=== PATIENT | male | born 1950 | race Caucasian/White ===

== ENCOUNTER → 2018-05-14 | Outpatient (CLI) | payer MEDICARE, OTHER ==
--- NOTE | 2018-05-14 12:57 | EST ---
EXERCISE STRESS DATE OF SERVICE: 05/14/2018 AGE: 68 SEX: Male HT: 71" WT: 247 pounds PROTOCOL: Rodrigo STAGE: II DURATION OF EXERCISE: 4 minutes HEART RATE REST: 70 BLOOD PRESSURE REST: 153/97 MAXIMUM HEART RATE ACHIEVED: 145 MAXIMUM BLOOD PRESSURE: 214/100 85% MPHR: 131 100% MPHR: 146 METS: 5.8 INDICATIONS: Coronary artery disease. CLINICAL INFORMATION: Baseline EKG revealed normal sinus rhythm without significant ST-T changes. Patient walked on a standard Rodrigo protocol for 4 minutes, developed some fatigue, shortness of breath, complained of soreness in the legs and therefore stress test was stopped. He achieved a maximal heart rate of 145 beats per minute, which is more than 85% of predicted maximal. There was some artifact noted. There were rare isolated PVCs. At peak exercise, the patient did not have any significant angina and EKG did not reveal any ST-segment changes. However, in the recovery period there is evidence of inferolateral ST-segment depression suggestive of ischemia without subjective symptoms of angina. There was no significant arrhythmia. FINAL IMPRESSION: 1. Limited exercise capacity. 2. Abnormal stress test with inferolateral ST-segment depression suggestive of ischemia without subjective symptoms of angina. If myocardial ischemia is strongly suspected, he should have a stress Cardiolite scan or a stress echocardiogram. MMODL / IJN: [id number] /
== END | disposition home or self-care (01) ==
LOC: RADNMMAIN 08:45
PROVIDERS: ATTEND Family Medicine
DX: R94.39 Abnormal result of other cardiovascular function study (principal); I25.84 Coronary atherosclerosis due to calcified coronary lesion
CPT/HCPCS: 93017

== ENCOUNTER → 2022-08-09 | Outpatient (CLI) | payer MEDICARE ==
--- NOTE | 2022-08-09 09:45 | XR ---
EXAMINATION TYPE: XR KUB DATE OF EXAM: 08/09/2022 Comparison: 01/28/2014 Clinical History: 72-year-old male hematuria, N20.0 calculus Findings: 8 mm calcification right mid abdomen. Presently 3 calcifications seen in the left mid abdomen measuri ng up to 8 mm. Possible additional calcifications right paramedian mid abdomen measuring 6 mm and 5 m m. Submental seeds within the region of the expected prostate gland. Cholecystectomy clips partially seen. Moderate stool burden. Nonobstructive bowel gas pattern. Impression: Bilateral nephrolithiasis. Some additional calcifications measuring 6 and 5 mm are located more media lly and could be in the right collecting system or upper right ureter. Correlate with patient's sympt oms.
== END | disposition home or self-care (01) ==
LOC: RADXRMAIN 09:06
PROVIDERS: ATTEND Urology
DX: N20.0 Calculus of kidney (principal); N28.89 Other specified disorders of kidney and ureter
CPT/HCPCS: 74018

== ENCOUNTER 2022-10-26 13:35 | Day surgery (SDC) | payer MEDICARE, OTHER ==
[2022-10-24 10:50] VITALS: BMI 35.4
[2022-10-26] MEDS ORDERED: DEXAMETHASONE SOD PHOSPHATE 4 MG/ML 1 ML VIAL IV ONE (14:09)
[2022-10-26] MEDS ORDERED: LIDOCAINE 1% (10MG/ML) FOR IV START INTRADERMA PRN (14:09)
[2022-10-26] MEDS ORDERED: ONDANSETRON 4 MG/2 ML VIAL IVP ONE (14:09)
[2022-10-26] MEDS ORDERED: HYDROmorphone 0.5 MG/0.5 ML SYRINGE IVP PRN (14:09)
--- NOTE | 2022-10-26 14:13 | XR ---
EXAMINATION TYPE: XR KUB DATE OF EXAM: 10/26/2022 Comparison: 08/09/2022 Clinical History: 72-year-old male, renal calculi Findings: Similar 7 mm calcification within the expected location of the superior pole left kidney. 5 mm calcif ication is stable within the expected region of the superior to midpole the left kidney. There are 3 small calcifications grouped together measuring up to 1.1 cm within the expected location of the mid to inferior pole of the right kidney. Previously questioned other calcifications are not visualized o n today's exam. No visualized calcifications within the pelvis. Submental seeds within the region of the expected prostate gland. Cholecystectomy clips in the right upper quadrant. Moderate stool burden . Nonobstructive bowel gas pattern. Multilevel degenerative changes of visualized spine. Impression: Bilateral nephrolithiasis as described above.
[2022-10-26] MEDS: LACTATED RINGERS 1,000 ML IV SCH ×2 (14:40→17:49)
[2022-10-26] MEDS ORDERED: PROPOFOL 10 MG/ML 20 ML VIAL IV ONE (15:43)
[2022-10-26] MEDS ORDERED: LIDOCAINE 2% INJ 20 MG/ML (2 ML VIAL) ONE (15:43)
[2022-10-26] MEDS ORDERED: MIDAZOLAM 2 MG/2 ML VIAL ONE (15:43)
[2022-10-26] MEDS ORDERED: SUCCINYLCHOLINE CHLORIDE 200 MG/10 ML VIAL IV ONE (15:43)
[2022-10-26] MEDS ORDERED: fentaNYL (PF) 50 MCG/ML 2 ML AMP ONE (15:43)
[2022-10-26] MEDS ORDERED: ePHEDrine 50 MG/ML 1 ML VIAL ONE (15:43)
[2022-10-26] MEDS ORDERED: PHENYLEPHRINE-0.9% NACL SYG 1,000 MCG/10 ML SYRINGE ONE (15:43)
[2022-10-26] MEDS ORDERED: ONDANSETRON 4 MG/2 ML VIAL ONE (15:43)
[2022-10-26] MEDS ORDERED: KETOROLAC 15 MG/ML 1 ML VIAL ONE (15:43)
--- NOTE | 2022-10-26 15:55 | P.HPIHPCON ---
History of Present Illness This is a 72-year-old male presented to the hospital with 7 millimeters right- sided proximal stone, multiple left-sided stones. Option of bilateral ureteroscopy with holmium laser was discussed with him. . Discussed the risk of bleeding, infection, injury to the ureter. Risk of anesthesia were discussed with him in details Consent for Procedure: I have explained the operation/procedure to the patient, including the risks, benefits, side effects, alternative therapies (including not receiving the pr oposed treatment or service), the likelihood of the patient achieving his/her goals, and potential recuperation problems for the procedure/sedation/analgesia, as well as any blood products, if indicated. I also explained to the patient the risks, benefits and side effects of the alternatives, as well as the risks related to not receiving the proposed procedure, care, treatment, or services. Past Medical History Past Medical History: Coronary Artery Disease (CAD), Hyperlipidemia, Hypertension, Myocardial Infarction ([place]) Additional Past Medical History / Comment(s): Chronic back pain. kidney stones Last Myocardial Infarction Date:: 12/21/2013 History of Any Multi-Drug Resistant Organisms: None Reported Past Surgical History: Cholecystectomy, Heart Catheterization With Stent Additional Past Surgical History / Comment(s): kidney stone removal Past Anesthesia/Blood Transfusion Reactions: No Reported Reaction Date of Last Stent Placement:: 12/21/2013 Past Psychological History: Depression Smoking Status: Current every day smoker Past Alcohol Use History: None Reported, Rare Past Drug Use History: None Reported - Past Family History Mother Family Medical History: No Reported History Medications and Allergies Home Medications Medication Instructions Recorded Confirmed Type HYDROcodone/APAP 7.5-325MG [[place] 1 tab PO BID PRN 12/22/13 10/24/22 History 7.5-325] Aspirin 325 mg PO DAILY #30 tab 12/23/13 10/24/22 Rx Enalapril [Vasotec] 5 mg PO DAILY 01/26/14 10/24/22 History Atorvastatin [Lipitor] 80 mg PO DAILY 01/27/14 10/24/22 History Celecoxib [CeleBREX] 200 mg PO DAILY 10/24/22 10/24/22 History Ezetimibe [Zetia] 10 mg PO DAILY 10/24/22 10/24/22 History Ondansetron [Zofran] 4 mg PO Q8HR PRN 10/24/22 10/24/22 History Tamsulosin [Flomax] 0.4 mg PO DAILY 10/24/22 10/24/22 History oxyCODONE HCL/ACETAMINOPHEN 1 tab PO Q6H PRN 10/24/22 10/24/22 History [oxyCODONE HCL/ACETAMINOPHEN 10-300] Allergies Allergy/AdvReac Type Severity Reaction Status Date / Time nitroglycerin Allergy Unknown Verified 10/26/22 14:29 Surgical - Exam Vital Signs Temp Pulse Resp BP Pulse Ox 97.7 F 77 16 132/72 95 10/26/22 14:27 10/26/22 14:27 10/26/22 14:27 10/26/22 14:27 10/26/22 14:27 - General no distress, moderate pain - Eyes normal ocular movement, no pale - ENT normal nares, normal mucosa - Respiratory normal expansion, normal respiratory effort - Abdomen Abdomen: soft, non tender - Psychiatric oriented to time, oriented to person, oriented to place Assessment and Plan Assessment: OR for bilateral ureteroscopy, holmium laser lithotripsy, stone basketing and stent insertion
[2022-10-26] MEDS ORDERED: IOPAMIDOL-370 100ML BTL MISCELLANE ONE (16:18)
[2022-10-26 17:17] VITALS: TEMP 97
--- NOTE | 2022-10-26 17:19 | P.OP ---
Date of Procedure: 10/26/22 Preoperative Diagnosis: right ureteral stone, bilateral renal stone Postoperative Diagnosis: same Procedure(s) Performed: Cystoscopy, bilateral ureteroscopy, left holmium laser lithotripsy, stone basketting, right ureteral ballooon dilation and bilateral stent insertion Implants: 6-Icelandic by 26 cm stents bilaterally Anesthesia: NITISHA Surgeon: Bryan Tapia Estimated Blood Loss (ml): 5 Pathology: other (right renal stone) Condition: stable Disposition: PACU Indications for Procedure: This is a 72-year-old male presented to the hospital with 7 millimeters right- sided proximal stone, multiple left-sided stones. Option of bilateral ureteroscopy with holmium laser was discussed with him. . Discussed the risk of bleeding, infection, injury to the ureter. Risk of anesthesia were discussed with him in details Operative Findings: Narrowing at the right proximal ureter 2 large stones within the kidney on the left Description of Procedure: Patient brought to the operating room, general anesthesia was induced. He was prepped and draped in sterile fashion and placed in dorsal lithotomy position. Cystoscopy fitted with a 21-Icelandic sheath was inserted per urethra, cystoscopy was performed which showed no abnormality within the bladder. Attention was then carried to the right ureteral orifice which was intubated with a sensor wire. Next under fluoroscopy 1113 Icelandic access sheath was passed over the wire and into the proximal ureter. Next a flexible ureteroscope was inserted through the access sheath, at this time a narrowing was encountered in the proximal ureter, I attempted to advance scope past the narrowing but was not able to. At this time a wire was advanced through the scope and the scope was removed with the wire in place. Next a ureteral balloon dilator was passed over the wire, and the narrowed area was dilated to 12-Icelandic under fluoroscopy. At this time the ureteroscope was inserted reinserted through the access sheath, I attempted to pass the scope past the narrowing but resistance was met. At this time given this finding decision was made to proceed with stent on that side. At this time pullback ureteroscopy was performed showed no injury to the ureter, as the ureteroscope was withdrawn aa sensor wire was advanced through. Next a ureteral stent was passed over the wire, the proximal curl was visualized on fluoroscopy and the distal curl was visualized using cystoscope. At this time attention was then carried to the left ureteral orifice, which was intubated with a sensor wire. Next under fluoroscopy 1113 Icelandic access sheath was passed over the wire into the proximal ureter. The flexible ureteroscope was inserted through the access sheath, renoscopy was performed which showed 2 large stone within within the mid pole and one within upper pole. Using the holmium laser the stone was fragmented, sizable fragments were removed and sent for analysis. Repeat renoscopy showed no sizable fragments or injury to the kidney. There was no radiopaque density seen on x-ray. Pullback ureteroscopy was performed which showed no injury to the ureter or any ureteral stones, As the ureteroscope was withdrawn a sensor wire was advanced through. Next a ureteral stent was passed over the wire, the proximal curl was visualized on fluoroscopy and the distal curl was visualized using the cystoscope. The bladder was emptied and the end of the case. Patient tolerated patient was taken to recovery in stable condition
[2022-10-26 18:27] VITALS: BP 138/84; PULSE 65; RESP 18
--- NOTE | 2022-10-27 08:04 | FL ---
Intraoperative/procedural fluoroscopic services were provided for bilateral ureteral stent placement. Total fluoroscopy time is 43 seconds with a total of 3 submitted images to PACS. Total DAP [phone]. P lease see the operative note for further details.
== END 2022-10-26 18:50 | disposition home or self-care (01) ==
LOC: OR 13:35
PROVIDERS: ATTEND Urology
DX: N20.0 Calculus of kidney (principal); I25.10 Atherosclerotic heart disease of native coronary artery without angina pectoris; I10 Essential (primary) hypertension; E78.5 Hyperlipidemia, unspecified; I25.2 Old myocardial infarction; F32.A Depression, unspecified; F17.210 Nicotine dependence, cigarettes, uncomplicated; Z79.899 Other long term (current) drug therapy
CPT/HCPCS: 82365; 74018; 52356; C2625; C1769; J2250; J0330; J1100; J0690; J2405; J3010; J1885; J2370; J2704; Q9967; J2001

== ENCOUNTER → 2022-12-04 | Outpatient (CLI) | payer MEDICARE ==
[2022-12-04 15:55] LABS: Appearance,Urine Cloudy (Clear); Bilirubin,Urine Negative (Negative); Blood,Urine Large (Negative); Color,Urine Yellow (Yellow); Ketones,Urine Negative (Negative); Nitrite,Urine Negative (Negative); PH, Urine 5.5 (5.0-8.0)
[2022-12-04 16:24] LABS: Bacteria,Urine None Seen /HPF (None Seen)
[2022-12-04 16:48] LABS: Basophils # (A) 0.04 X 10*3/uL (0.00-0.10); Basophils % (A) 0.6 %; Eosinophils # (A) 0.37 X 10*3/uL (0.04-0.35); Eosinophils % (A) 5.6 %; HCT 41.7 % (39.6-50.0); HGB 13.9 g/dL (13.0-17.0); Immature Grans, Automated 0.3 %; Lymphocytes # (A) 2.08 X 10*3/uL (0.90-5.00); Lymphocytes % (A) 31.6 %; MCH 31.5 pg (27.0-32.0); MCHC 33.3 g/dL (32.0-37.0); MCV 94.6 fL (80.0-97.0); Mean Platelet Volume 9.5 fL (9.5-12.2); Monocytes # (A) 0.54 X 10*3/uL (0.20-1.00); Monocytes % (A) 8.2 %; NRBC Per 100 WBC 0 /100 WBCS (0.0-0.0); Neutrophils # (A) 3.53 X 10*3/uL (1.80-7.70); Neutrophils % (A) 53.7 %; Platelet Count 187 X 10*3/uL (140-440); RBC 4.41 X 10*6/uL (4.40-5.60); RDW 13.1 % (11.5-14.5); WBC 6.58 X 10*3/uL (4.50-10.00)
[2022-12-04 17:12] LABS: African American GFR (CKD) 100.6 (60.0-200.0); Anion Gap 13.4 mmol/L (10.00-18.00); BUN/Creat Ratio 20.56 Ratio (12.00-20.00); Blood Urea Nitrogen 18.2 mg/dL (9.0-27.0); Calcium 9.3 mg/dL (8.7-10.3); Carbon Dioxide 21.6 mmol/L (20.0-27.5); Non-African American GFR(CKD) 86.8 (60.0-200.0); Potassium 4.3 mmol/L (3.5-5.5)
== END | disposition home or self-care (01) ==
LOC: LABPAT 08:48
PROVIDERS: ATTEND Urology
DX: Z01.812 Encounter for preprocedural laboratory examination (principal); N20.1 Calculus of ureter; R31.29 Other microscopic hematuria
CPT/HCPCS: 80048; 81001; 85025; 87086

== ENCOUNTER 2022-12-07 11:00 | Day surgery (SDC) | payer MEDICARE ==
[2022-12-05 15:43] VITALS: BMI 34.4
--- NOTE | 2022-12-07 11:19 | XR ---
EXAMINATION TYPE: XR KUB DATE OF EXAM: 12/07/2022 11:14 AM INDICATION: Patient age:Male; 72 years old; Reason for study: R00.1 R06.02; [facility]. COMPARISON: 10/26/2022 TECHNIQUE: One radiographic view of the abdomen was obtained. FINDINGS: Bilateral ureteral stents ureteral stents. The right proximal portion projects over the rig ht renal pelvis the left renal stent proximal portion projects over the superior renal pole. The infe rior portions of the stents are projected over the bladder. Right upper quadrant cholecystectomy clip s. The bowel gas pattern is nonspecific without dilated loops of small or large bowel. There is no ev idence for organomegaly or pneumoperitoneum. The osseous structures are intact. No abnormal calcifi cations are present. Fecal material and gas are demonstrated throughout the colon and rectum. IMPRESSION: Bilateral ureteral stents. The right proximal portion is projecting over the renal pelvis. Nonspecific bowel gas pattern.
[2022-12-07] MEDS ORDERED: LACTATED RINGERS 1,000 ML IV ONE ×3 (11:57→15:05)
[2022-12-07] MEDS ORDERED: fentaNYL (PF) 50 MCG/ML 2 ML AMP ONE (14:07)
[2022-12-07] MEDS ORDERED: LIDOCAINE 2% INJ 20 MG/ML (2 ML VIAL) ONE (14:07)
[2022-12-07] MEDS ORDERED: ROCURONIUM 10 MG/ML (5 ML VIAL) IV ONE (14:07)
[2022-12-07] MEDS ORDERED: PROPOFOL 10 MG/ML 20 ML VIAL IV ONE (14:07)
[2022-12-07] MEDS ORDERED: SUCCINYLCHOLINE CHLORIDE 200 MG/10 ML VIAL IV ONE (14:07)
--- NOTE | 2022-12-07 14:11 | P.HPIHPCON ---
History of Present Illness H&P Date: 12/07/22 Chief Complaint: Right sided ureteral stone This is a 72-year-old male with history of a 7 mm right-sided ureteral stone, left sided renal stones. Underwent left-sided ureteroscopy with holmium laser and bilateral stent insertion on October 26. Attempt to remove the right stone could not be performed due to ureteral stricture. He presents today for a right-sided ureteroscopy with holmium laser and bilateral stent removal. Discussed with him the risk of surgery which includes but not limited to bleeding, infection, injury to the ureter. Risk of anesthesia was also discussed with him. He understood all the risks and agreed to proceed Consent for Procedure: I have explained the operation/procedure to the patient, including the risks, benefits, side effects, alternative therapies (including not receiving the proposed treatment or service), the likelihood of the patient achieving his/her goals, and potential recuperation problems for the procedure/sedation/analgesia, as well as any blood products, if indicated. I also explained to the patient the risks, benefits and side effects of the alternatives, as well as the risks related to not receiving the proposed procedure, care, treatment, or services. Past Medical History Past Medical History: Coronary Artery Disease (CAD), Hyperlipidemia, Hypertension, Myocardial Infarction ([place]) Additional Past Medical History / Comment(s): Chronic back pain. kidney stones Last Myocardial Infarction Date:: 12/21/2013 History of Any Multi-Drug Resistant Organisms: None Reported Past Surgical History: Cholecystectomy, Heart Catheterization With Stent Additional Past Surgical History / Comment(s): kidney stone removal. 10/26/22- BILAT UTERERAL STENTS, LITHOTRIPSY, STONE BASKETING. BILAT CATARACTS REMOVED WITH LENS IMPLANTS Past Anesthesia/Blood Transfusion Reactions: No Reported Reaction Date of Last Stent Placement:: 12/21/2013 Smoking Status: Former smoker - Past Family History Mother Family Medical History: No Reported History Medications and Allergies Home Medications Medication Instructions Recorded Confirmed Type HYDROcodone/APAP 7.5-325MG [[place] 1 tab PO BID PRN 12/22/13 12/05/22 History 7.5-325] Aspirin 325 mg PO DAILY #30 tab 12/23/13 12/05/22 Rx Enalapril [Vasotec] 5 mg PO DAILY 01/26/14 12/05/22 History Atorvastatin [Lipitor] 80 mg PO DAILY 01/27/14 12/05/22 History Celecoxib [CeleBREX] 200 mg PO DAILY 10/24/22 12/05/22 History Ezetimibe [Zetia] 10 mg PO DAILY 10/24/22 12/05/22 History Ondansetron [Zofran] 4 mg PO Q8HR PRN 10/24/22 12/05/22 History Tamsulosin [Flomax] 0.4 mg PO DAILY 10/24/22 12/05/22 History Allergies Allergy/AdvReac Type Severity Reaction Status Date / Time nitroglycerin Allergy UNKNOWN-HAPPENED Verified 12/07/22 12:01 10 YRS AGO Surgical - Exam Vital Signs Temp Pulse Resp BP Pulse Ox 98.1 F 71 18 144/85 96 12/07/22 12:02 12/07/22 12:02 12/07/22 12:02 12/07/22 12:02 12/07/22 12:02 - General no distress, moderate pain - Eyes normal ocular movement, no pale - ENT normal nares, normal mucosa - Respiratory normal expansion, normal respiratory effort - Abdomen Abdomen: soft, non tender - Psychiatric oriented to time, oriented to person, oriented to place Assessment and Plan Assessment: OR for cystoscopy, right ureteroscopy with holmium laser, bilateral stent removal
[2022-12-07] MEDS ORDERED: IOPAMIDOL-370 100ML BTL MISCELLANE ONE (14:42)
[2022-12-07 15:53] VITALS: RESP 16; TEMP 97
--- NOTE | 2022-12-07 16:01 | FL ---
Intraoperative/procedural fluoroscopic services were provided. Total fluoroscopy time is 2 minutes 11 seconds with a total of 2 submitted images to PACS. Please see the operative/procedural note for fur ther details. DAP: [phone]
--- NOTE | 2022-12-07 16:48 | P.OP ---
Date of Procedure: 12/07/22 Preoperative Diagnosis: Right ureteral stone Postoperative Diagnosis: Same Procedure(s) Performed: Cystoscopy, right ureteroscopy, holmium laser lithotripsy, stone basketing, ureteral balloon dilation, right stent exchange and left stent removal Implants: 6-Danish by 26 cm stent left on a string in the right ureter Anesthesia: JARRED Surgeon: Bryan Tapia Estimated Blood Loss (ml): 5 Pathology: other (right ureteral stone) Condition: stable Disposition: PACU Indications for Procedure: This is a 72-year-old male with history of a 7 mm right-sided ureteral stone, left sided renal stones. Underwent left-sided ureteroscopy with holmium laser and bilateral stent insertion on October 26. Attempt to remove the right stone could not be performed due to ureteral stricture. He presents today for a right-sided ureteroscopy with holmium laser and bilateral stent removal. Discussed with him the risk of surgery which includes but not limited to bleeding, infection, injury to the ureter. Risk of anesthesia was also discussed with him. He understood all the risks and agreed to proceed Operative Findings: Right proximal ureteral narrowing, stone has migrated to the right renal pelvis, an additional stone was also in the upper pole Description of Procedure: Patient brought to the operating room, general anesthesia was induced. He was prepped and draped in sterile fashion and placed in dorsal lithotomy position. Cystoscopy fitted with a 21-Danish sheath was inserted per urethra, the left stent was removed intact. Attention was then carried to the right ureter stent which was also removed intact. At this time a semirigid ureteroscope was inserted per urethra and advanced up the right ureteral orifice, the scope was advanced into the proximal ureter which showed no evidence of stone, I was not able to advance the scope higher than the distal portion of the proximal ureter. At this time a sensor wire was advanced through the scope and scope was removed wire in place. Next an 1113 Danish access sheath was passed over the wire. Next the flexible ureteroscope was inserted through the access sheath, at this time a narrowing was encountered in the proximal ureter I was not able to navigate the scope past the narrowing. At this time the wire was readvanced through the scope and the scope was removed the wire in place. Next a 15-Danish balloon dilator was passed over the wire, and the narrowing was dilated under fluoroscopy. At this time the ureteroscope was reinserted, I was able to advance the scope past the stricture, this time a stone was encountered in the renal pelvis, appeared that the stone were pushed back into the kidney from the proximal ureter wheb the wire was readvanced.. There was a total of 2 stones. The stones were dusted, sizable fragments were removed. Repeat renoscopy showed also an additional stone in the upper pole that was basketed and removed intact. Repeat renoscopy showed no injury to the kidney or any sizable fragments. Pullback ureteroscopy was performed which showed no injury to the ureter or any ureteral stones, as the ureteroscope was withdrawn, a sensor wire was advanced through. Next a ureteral stent was passed over the wire, the proximal curl was visualized on fluoroscopy and the distal curl was visualized using cystoscope. The stent was left on a string and taped to the patient penis. Patient tolerated the procedure well was taken to recovery in stable condition
[2022-12-07 16:51] VITALS: BP 178/55; PULSE 53
== END 2022-12-07 17:02 | disposition home or self-care (01) ==
LOC: OR 11:00
PROVIDERS: ATTEND Urology
DX: N20.1 Calculus of ureter (principal); I10 Essential (primary) hypertension; E78.5 Hyperlipidemia, unspecified; I25.10 Atherosclerotic heart disease of native coronary artery without angina pectoris; Z90.49 Acquired absence of other specified parts of digestive tract; Z95.5 Presence of coronary angioplasty implant and graft; Z98.890 Other specified postprocedural states; Z87.891 Personal history of nicotine dependence; Z79.899 Other long term (current) drug therapy
CPT/HCPCS: 74018; 74420; 82365